=== PATIENT | male | born 2000 | race Caucasian/White ===

== ENCOUNTER 2023-06-28 12:45 | Emergency (ER) | payer OTHER ==
[~2023-06-28] VITALS: Ht 172.7 cm; Wt 86.2 kg
== END 2023-06-28 14:57 | disposition home or self-care (01) ==
LOC: ER 12:45
DX: R10.9 Unspecified abdominal pain (principal); Z88.6 Allergy status to analgesic agent; Z91.018 Allergy to other foods

== ENCOUNTER 2023-06-30 10:57 | Outpatient (CLI) | payer OTHER | END 2023-06-30 11:06 | disposition home or self-care (01) | LOC: MRI 10:57 | DX: R22.41 Localized swelling, mass and lump, right lower limb (principal); R70.0 Elevated erythrocyte sedimentation rate; R50.9 Fever, unspecified | CPT/HCPCS: 73722 ==